=== PATIENT | male | born 1955 | race Caucasian/White ===

== ENCOUNTER 2020-01-14 09:58 | Emergency (ER) | payer OTHER ==
[2020-01-14] MEDS ORDERED: Bacitracin 1 PK ONE (10:29)
[2020-01-14] MEDS ORDERED: Amoxicillin/Potassium Clav 875 MG TAB ONE (10:33)
== END 2020-01-14 10:37 | disposition home or self-care (01) ==
LOC: BURERS 09:58
DX: S61.002A Unspecified open wound of left thumb without damage to nail, initial encounter (principal); W22.8XXA Striking against or struck by other objects, initial encounter
CPT/HCPCS: 99283